=== PATIENT | male | born 1960 | race Caucasian/White ===

== ENCOUNTER 2017-05-01 08:08 | Emergency (ER) | payer SELFPAY ==
[~2017-05-01] VITALS: Ht 177.8 cm; Wt 77.7 kg
[2017-05-01 08:18] VITALS: BP 146/80
== END 2017-05-01 09:32 | disposition home or self-care (01) ==
LOC: ED 09:10
DX: K40.91 Unilateral inguinal hernia, without obstruction or gangrene, recurrent (principal)
CPT/HCPCS: 99281

== ENCOUNTER 2017-05-16 11:19 | Day surgery (SDC) | payer MEDICAID ==
[~2017-05-16] VITALS: Ht 177.8 cm; Wt 76.0 kg
[2017-05-16] MEDS ORDERED: LACTATED RINGERS 1,000 ML IV SCH (11:43)
[2017-05-16 11:46] VITALS: BP 117/80
[2017-05-16] MEDS ORDERED: EPINEPHRINE 1 MG/ML, 1ML ONE (15:04)
[2017-05-16] MEDS ORDERED: BUPIVACAINE/PF 0.5% ONE (15:04)
[2017-05-16] MEDS ORDERED: MIDAZOLAM 1 MG/ML, 2ML ONE (17:49)
[2017-05-16] MEDS ORDERED: FENTANYL PF 250 MCG/5ML ONE (17:49)
[2017-05-16] MEDS ORDERED: CEFAZOLIN 1,000 MG ONE ×3 (18:18)
[2017-05-16] MEDS ORDERED: ROCURONIUM 10 MG/ML,10ML ONE (18:18)
[2017-05-16] MEDS ORDERED: PROPOFOL 10 MG/ML, 20ML ONE (18:18)
[2017-05-16] MEDS ORDERED: BUPIVACAINE/PF-EPI 0.5% 1:200K IM ONE (18:20)
[2017-05-16] MEDS ORDERED: GLYCOPYRROLATE 0.2MG/1ML, 5ML ONE (18:27)
[2017-05-16] MEDS ORDERED: NEOSTIGMINE 1 MG/ML, 10ML ONE (18:27)
[2017-05-16] MEDS ORDERED: PROMETHAZINE 25 MG/ML, 1ML IV PRN (19:00)
[2017-05-16] MEDS ORDERED: LABETALOL 5MG/ML, 20ML IV PRN (19:00)
[2017-05-16] MEDS ORDERED: ACETAMINOPHEN 325 MG TABLET PO PRN (19:00)
[2017-05-16] MEDS ORDERED: HYDROmorphone 1 MG/ML, 1ML IV PRN (19:00)
[2017-05-16] MEDS ORDERED: EPHEDRINE 50 MG/ML, 1ML IVPush PRN (19:00)
[2017-05-16] MEDS ORDERED: METOPROLOL 1 MG/ML, 5ML IV PRN (19:00)
[2017-05-16] MEDS ORDERED: ONDANSETRON 2MG/ML, 2ML IVPush PRN ×2 (19:00→22:30)
[2017-05-16] MEDS ORDERED: ALBUTEROL SULFATE 2.5 MG/3 ML NPPB PRN (19:00)
[2017-05-16] MEDS ORDERED: MEPERIDINE/PF 25MG/0.5ML IVPush PRN (19:00)
[2017-05-16] MEDS ORDERED: hydrALAzine 20 MG/ML, 1ML IV PRN (19:00)
[2017-05-16] MEDS ORDERED: OXYcodone 5 MG/5 ML ORAL.SOL UDC PO PRN ×2 (19:00→22:30)
[2017-05-16] MEDS ORDERED: ONDANSETRON 2MG/ML, 2ML ONE ×2 (19:51)
[2017-05-16] MEDS ORDERED: DEXAMETHASONE 4 MG/ML, 1ML ONE (19:51)
[2017-05-16] MEDS ORDERED: OXYcodone 5 MG/5 ML ORAL.SOL UDC ONE (20:30)
[2017-05-16] MEDS ORDERED: FENTANYL PF 100 MCG/2ML ONE (20:30)
[2017-05-16] MEDS: FENTANYL PF 100 MCG/2ML IV PRN ×2 (20:35→20:53)
[2017-05-16] MEDS ORDERED: HYDROmorphone 2 MG/ML, 1ML IV PRN (22:30)
[2017-05-16] MEDS ORDERED: KETOROLAC 30 MG/1 ML IV PRN (22:30)
[2017-05-16] MEDS ORDERED: DIPHENHYDRAMINE 50 MG/ML, 1ML IVPush PRN (22:30)
[2017-05-16] MEDS ORDERED: OXYC5CAP2 PO ×2 (22:53→22:56)
[2017-05-16] MEDS ORDERED: OXYC5TAB2 PO (22:56)
== END 2017-05-16 23:53 | disposition home or self-care (01) ==
LOC: OUT 11:19 → 4NOR 21:57 → OUT 23:53
PROVIDERS: ATTEND Surgery
DX: K40.21 Bilateral inguinal hernia, without obstruction or gangrene, recurrent (principal); D17.1 Benign lipomatous neoplasm of skin and subcutaneous tissue of trunk; I10 Essential (primary) hypertension; Z88.8 Allergy status to other drugs, medicaments and biological substances; Z98.890 Other specified postprocedural states; Z95.1 Presence of aortocoronary bypass graft
CPT/HCPCS: 22903; 49651; 88304; C1781; J0171; J0690; J1100; J1885; J2250; J2405; J2704; J2710; J3010; J3490; J7120

== ENCOUNTER 2017-06-01 17:06 | Emergency (ER) | payer SELFPAY ==
[~2017-06-01] VITALS: Ht 177.8 cm; Wt 84.0 kg
[~2017-06-01 17:06] MED LIST: OXYC5CAP2 PO; OXYC5TAB2 PO
[2017-06-01] MEDS ORDERED: SODIUM CHLORIDE 0.9% 1,000 ML IV ONE (17:33)
[2017-06-01 17:49] LABS: BASOPHILS # (AUTO) 0.02 x10^3/uL (0-0.1); BASOPHILS % (AUTO) 0 % (0-1); EOSINOPHILS # (AUTO) 0.35 x10^3/uL (0-0.4); EOSINOPHILS % (AUTO) 5 % (1-7); LYMPHOCYTES # (AUTO) 2.57 x10^3/uL (1-3.4); LYMPHOCYTES % (AUTO) 33 % (22-44); MD NO; MEAN CORPUSCULAR HEMOGLOBIN 34.6 pg (27.5-34.5); MEAN CORPUSCULAR HGB CONC 33.2 g/dL (33.2-36.2); MEAN PLATELET VOLUME 6.4 fL (7.4-10.4); MONOCYTES # (AUTO) 0.53 x10^3/uL (0.2-0.8); MONOCYTES % (AUTO) 7 % (2-9); NEUTROPHILS # (AUTO) 4.33 x10^3/uL (1.8-6.8); NEUTROPHILS % (AUTO) 55 % (42-75); PLATELET COUNT 353 x10^3/uL (130-400); RED BLOOD COUNT 4.67 x10^6/uL (4.38-5.82); RED CELL DISTRIBUTION WIDTH 14.8 % (9.4-14.8)
[2017-06-01 17:59] LABS: ALANINE AMINOTRANSFERASE 19 U/L (12-78); ALBUMIN 3.6 g/dL (3.4-5.0); ANION GAP 9 mmol/L (5-15); CALCIUM 8.1 mg/dL (8.5-10.1); CHLORIDE 110 mmol/L (98-107); CREATININE 0.86 mg/dL (0.7-1.3)
[2017-06-01] MEDS ORDERED: SODIUM CHLORIDE FLUSH 10ML SYR IVF ONE (18:00)
[2017-06-01] MEDS ORDERED: SODIUM CHLORIDE 0.9% 1,000ML IVBOLUS ONE (18:00)
[2017-06-01 18:04] LABS: ALKALINE PHOSPHATASE 82 U/L (45-117); BILIRUBIN,TOTAL 0.3 mg/dL (0.2-1.0); TOTAL PROTEIN 7.6 g/dL (6.4-8.2)
[2017-06-01 20:22] VITALS: BP 125/80
== END 2017-06-01 20:26 | disposition home or self-care (01) ==
LOC: ED 19:45
DX: F10.221 Alcohol dependence with intoxication delirium (principal); S09.90XA Unspecified injury of head, initial encounter; W18.30XA Fall on same level, unspecified, initial encounter; Y93.89 Activity, other specified; Y92.89 Other specified places as the place of occurrence of the external cause; Y99.9 Unspecified external cause status
CPT/HCPCS: 36415; 70450; 71045; 80053; 80307; 85025; 96360; 96361; 99285; J7030

== ENCOUNTER 2017-11-24 20:35 | Emergency (ER) | payer SELFPAY ==
[~2017-11-24] VITALS: Ht 177.8 cm; Wt 75.0 kg
[2017-11-24 21:39] VITALS: BP 101/68
== END 2017-11-24 22:51 | disposition home or self-care (01) ==
LOC: ED 22:45
DX: F10.120 Alcohol abuse with intoxication, uncomplicated (principal); S80.212A Abrasion, left knee, initial encounter; Z72.9 Problem related to lifestyle, unspecified; X58.XXXA Exposure to other specified factors, initial encounter; Y93.89 Activity, other specified; Y92.89 Other specified places as the place of occurrence of the external cause; Y99.8 Other external cause status
CPT/HCPCS: 99283

== ENCOUNTER 2018-01-18 17:56 | Emergency (ER) | payer MEDICAID, OTHER ==
[~2018-01-18] VITALS: Ht 177.8 cm; Wt 79.5 kg
[2018-01-19 05:42] VITALS: BP 123/85
== END 2018-01-19 06:02 | disposition home or self-care (01) ==
LOC: ED 19:02
DX: F10.220 Alcohol dependence with intoxication, uncomplicated (principal)
CPT/HCPCS: 99283

== ENCOUNTER 2018-01-18 22:53 | Emergency (ER) | payer MEDICAID | END 2018-01-18 22:57 | LOC: ED 22:55 | DX: Z53.21 Procedure and treatment not carried out due to patient leaving prior to being seen by health care provider (principal) ==

== ENCOUNTER 2018-01-31 18:24 | Emergency (ER) | payer MEDICAID ==
[~2018-01-31] VITALS: Ht 177.8 cm; Wt 75.0 kg
[2018-01-31 20:40] LABS: ANION GAP 11 mmol/L (5-15); CALCIUM 7.8 mg/dL (8.5-10.1); CHLORIDE 112 mmol/L (98-107); CREATININE 0.78 mg/dL (0.7-1.3)
[2018-01-31 22:43] VITALS: BP 103/63
== END 2018-01-31 22:47 | disposition home or self-care (01) ==
LOC: ED 22:31
DX: S09.90XA Unspecified injury of head, initial encounter (principal); F10.121 Alcohol abuse with intoxication delirium; R41.82 Altered mental status, unspecified; F15.20 Other stimulant dependence, uncomplicated; Z88.1 Allergy status to other antibiotic agents; Z88.5 Allergy status to narcotic agent; W19.XXXA Unspecified fall, initial encounter; Y93.89 Activity, other specified; Y92.89 Other specified places as the place of occurrence of the external cause; Y99.8 Other external cause status
CPT/HCPCS: 36415; 70450; 80048; 80307; 99285

== ENCOUNTER 2018-05-18 13:53 | Emergency (ER) | payer MEDICAID ==
[~2018-05-18] VITALS: Ht 167.6 cm; Wt 82.0 kg
[2018-05-18 14:05] VITALS: BP 119/80
--- NOTE | 2018-05-18 14:08 | NUR ---
UPON ERP ASSESSMENT PT A&OX4, DENYING PHYSICAL CO; DENIES SI/HI. PT AMBULATORY WO ASSISTANCE AND REQUESTING TO LEAVE. PT AMBULATED STEADILY TO DC WITH RN. PT REPORTS HAS OWN BUS PASS FOR SAFE TRANSPORT. SPEECH CLEAR, PT NON-TREMULOUS AND FULLY AMBULATORY.
== END 2018-05-18 14:11 | disposition home or self-care (01) ==
LOC: ED 14:09
DX: F10.229 Alcohol dependence with intoxication, unspecified (principal); Z00.00 Encounter for general adult medical examination without abnormal findings
CPT/HCPCS: 99283

== ENCOUNTER 2018-05-25 14:30 | Emergency (ER) | payer MEDICAID ==
[~2018-05-25] VITALS: Ht 177.8 cm; Wt 80.0 kg
[2018-05-25 14:37] VITALS: BP 113/72
--- NOTE | 2018-05-25 16:46 | NUR ---
pt arouses to verbal stimuli, no acute s/s of distress. denies needs at this time
--- NOTE | 2018-05-25 17:40 | NUR ---
unsteady gait with ambulation trial
--- NOTE | 2018-05-25 19:02 | NUR ---
REPORT FROM [facility]UMED CARE OF PT
--- NOTE | 2018-05-25 21:27 | NUR ---
Patient/Caregiver given discharge instructions and they have confirmed that they understand the instructions. Patient ambulatory with steady gait.
== END 2018-05-25 21:28 | disposition home or self-care (01) ==
LOC: ED 15:03
DX: F10.120 Alcohol abuse with intoxication, uncomplicated (principal); F17.200 Nicotine dependence, unspecified, uncomplicated
CPT/HCPCS: 99283